=== PATIENT | male | born 1990 | race African-American/Black ===

== ENCOUNTER 2016-12-07 12:22 | Inpatient (IN) | payer SELFPAY ==
[~2016-12-07] VITALS: Ht 167.6 cm; Wt 63.7 kg
[2016-12-07 13:44] LABS: HEMOGLOBIN 13.8 gm/dl (14.0-17.5); RED BLOOD COUNT 4.21 M/UL (4.20-5.50); WHITE BLOOD COUNT 14.2 K/UL (4.5-11.0)
[2016-12-07 14:05] LABS: BUN/CREATININE RATIO 8 (0-10)
[2016-12-08 05:55] LABS: HEMOGLOBIN 12.6 gm/dl (14.0-17.5); RED BLOOD COUNT 3.94 M/UL (4.20-5.50); WHITE BLOOD COUNT 14.1 K/UL (4.5-11.0)
[2016-12-08 06:15] LABS: BUN/CREATININE RATIO 10 (0-10)
[2016-12-09 05:01] LABS: HEMOGLOBIN 12.7 gm/dl (14.0-17.5); RED BLOOD COUNT 3.95 M/UL (4.20-5.50); WHITE BLOOD COUNT 11.5 K/UL (4.5-11.0)
[2016-12-09 05:17] LABS: BUN/CREATININE RATIO 12 (0-10)
[2016-12-10 05:38] LABS: HEMOGLOBIN 12.9 gm/dl (14.0-17.5); RED BLOOD COUNT 3.99 M/UL (4.20-5.50)
[2016-12-10 05:41] LABS: WHITE BLOOD COUNT 7.8 K/UL (4.5-11.0)
[2016-12-11 05:44] LABS: HEMOGLOBIN 13.1 gm/dl (14.0-17.5); RED BLOOD COUNT 4.04 M/UL (4.20-5.50)
[2016-12-11 06:04] LABS: BUN/CREATININE RATIO 13 (0-10)
[2016-12-11] MEDS ORDERED: THERAGRAN M TAB1 EA PO (10:00)
[2016-12-11] MEDS ORDERED: TYLENOL 325MG325 MG PO (10:01)
[2016-12-11] MEDS ORDERED: BACTRIM DS TAB1 EACH PO (10:02)
[2016-12-11] MEDS ORDERED: BACTROBAN NASAL1 GM (10:04)
[2016-12-11] MEDS ORDERED: SENOKOT-S TABL1 EACH PO (10:05)
[2016-12-11] MEDS ORDERED: ANTISEPTIC SKI237 ML TP (10:08)
== END 2016-12-11 11:30 | disposition home or self-care (01) | DRG 572 ==
LOC: ER1 12:22 → M/S 15:41 → ZEROF 15:41 → M/S 20:12
PROVIDERS: Internal Medicine; Internal Medicine Infectious Disease; Physician Assistant Medical; ADMIT Internal Medicine
PROC: 0JBL0ZZ Excision of Right Upper Leg Subcutaneous Tissue and Fascia, Open Approach (ICD-10-PCS; principal; 2016-12-07)
DX: L02.415 Cutaneous abscess of right lower limb (principal); L03.115 Cellulitis of right lower limb; F17.210 Nicotine dependence, cigarettes, uncomplicated; D75.89 Other specified diseases of blood and blood-forming organs; A49.02 Methicillin resistant Staphylococcus aureus infection, unspecified site
CPT/HCPCS: 10060; 36415; 73701; 80048; 80053; 80202; 82607; 82746; 84439; 84443; 85025; 85027; 87040; 87070; 87077; 87186; 87205; 96365; 96366; 96375; 99284; J2250; J2270; J2405; J3370; J3420; J7050; J7070; J7120; Q9962